=== PATIENT | female | born 1940 | race Caucasian/White ===

== ENCOUNTER 2018-05-28 18:02 | Inpatient (IN) | payer MEDICARE, BC ==
[~2018-05-28] VITALS: Ht 160 cm; Wt 75.7 kg
[2018-05-28 18:03] VITALS: BP 164/70
[2018-05-28 18:44] LABS: HEMATOCRIT 30.3 % (37.0-47.0); HEMOGLOBIN 9.7 gm/dL (12.0-15.0); MCH 23.4 pg (26.0-34.0); MCV 73.1 fL (80.0-100.0); MPV 8.4 fl. (7.2-11.1); NUCLEATED RBCS 0 /100WBC; PLATELET COUNT* 303 thou/uL (150-400); RBC 4.14 mil/uL (4.20-5.00); RDW-CV 19.9 % (10.5-14.5); WBC 7.7 thou/uL (4.0-11.0)
[2018-05-28 18:53] LABS: PROTIME 10.3 Seconds (9.20-11.50)
[2018-05-28 18:57] LABS: ANION GAP 13 mmol/L (7-16); BUN 18 mg/dL (7-18); CALCIUM 8.7 mg/dL (8.5-10.1); CHLORIDE 106 mmol/L (98-107); CO2 24 mmol/L (21-32); CREATININE 0.8 mg/dL (0.6-1.3); GLUCOSE 117 mg/dL (70-99); SODIUM 143 mmol/L (136-145); TROPONIN-I LEVEL <0.06 ng/mL (<0.06)
[2018-05-28 18:58] LABS: ALBUMIN 3.8 g/dL (3.4-5.0); ALKALINE PHOSPHATASE 95 U/L (46-116); NT-PRO BRAIN NAT PEPTIDE 173 pg/mL (<300); SGOT 17 U/L (15-37); SGPT 14 U/L (30-65); TOTAL BILIRUBIN 0.4 mg/dL (<0.1-1.0); TOTAL PROTEIN 6.9 g/dL (6.4-8.2)
[2018-05-28 19:09] LABS: ABSOLUTE EOSINOPHILS 0.1 thou/uL (0.0-0.7); ABSOLUTE LYMPHOCYTES 0.5 thou/uL (0.8-5.3); ABSOLUTE MONOCYTES 0.5 thou/uL (0.0-1.2); ABSOLUTE NEUTROPHILS 6.6 thou/uL (1.6-8.1)
[2018-05-28 19:10] LABS: ANISOCYTOSIS 1+; MICROCYTES 1+; PLATELET ESTIMATE ADEQUATE
[2018-05-28 21:00] LABS: URINE BILIRUBIN NEGATIVE (Negative); URINE BLOOD NEGATIVE (Negative); URINE CLARITY CLEAR; URINE COLOR YELLOW; URINE GLUCOSE-RANDOM NEGATIVE (Negative); URINE KETONES NEGATIVE (Negative); URINE LEUKOCYTES-REFLEX NEGATIVE (Negative); URINE NITRITE-REFLEX NEGATIVE (Negative); URINE PROTEIN NEGATIVE (Negative); URINE SPECIFIC GRAVITY 1.025 (1.005-1.030); URINE UROBILINOGEN 0.2 E.U./dl (0.2-1.0)
[2018-05-28 22:32] VITALS: BP 147/66
[2018-05-28 22:45] VITALS: BP 166/81
--- NOTE | 2018-05-28 23:17 | NUR ---
PATIENTS DAUGHTER REQUESTED TO HAVE CASE MANAGEMENT/SOCIALSERVICES SEE PATIENT ABOUT AFTER DISCHARGE CARE. PATIENT LIVES WITH DAUGHTER AND PATIENT NOW HAS MOBILITY DIFFICULTY. PATIENTS DAUGHTER STATES THEY WILL NEED ASSISTANCE. ED SMALL BUSINESS SALES REPRESENTATIVE NOTIFIED OF THIS REQUEST AND JAMIE BACON FLOOR NURSE WAS ALSO NOTIFIED OF THIS REQUEST ON TELEPHONE REPORT. PATIENTS DAUGHTER IS MARY JUAREZ [phone]
[2018-05-29 04:00] VITALS: BP 135/68
--- NOTE | 2018-05-29 04:18 | NUR ---
ASSUMED CARE OF PT AT 2245. PT IS ALERT AND ORIENTED. VSS. PERRLA. PT IS REPORTING SOME PAIN IN RIGHT ARM AT THIS TIME. PT TO RECIEVE FENTANYL FOR PAIN. PT IS IN SIUS RYTHM ON THE TELEMETRY. PT IS RESTING COMFORTABLY IN BED. RESPIRATIONS ARE EVEN AND NONLABORED. WILL CONTINUE TO MONITOR
[2018-05-29 05:07] LABS: HEMATOCRIT 27.7 % (37.0-47.0); HEMOGLOBIN 8.8 gm/dL (12.0-15.0); MCH 23.1 pg (26.0-34.0); MCHC 31.7 g/dL (28.0-37.0); MCV 72.8 fL (80.0-100.0); MPV 8.7 fl. (7.2-11.1); RBC 3.81 mil/uL (4.20-5.00); RDW-CV 19.2 % (10.5-14.5)
[2018-05-29 05:17] LABS: ALBUMIN 3.4 g/dL (3.4-5.0); CALCIUM 8.7 mg/dL (8.5-10.1); CREATININE 0.8 mg/dL (0.6-1.3); POTASSIUM 3.8 mmol/L (3.5-5.1); TOTAL BILIRUBIN 0.6 mg/dL (<0.1-1.0); TOTAL PROTEIN 6.1 g/dL (6.4-8.2)
[2018-05-29 07:30] VITALS: BP 159/66
--- NOTE | 2018-05-29 10:45 | EKG ---
[place] [address] ELECTROCARDIOGRAM REPORT Name: ISIDROMADDIE LOU Room: [address] ADM IN M.R.#: [id number] Admission: 05/28/18 Attend Phys: Yong Pearson Discharge: Date of : 42 Report #: [id number] THIS REPORT FOR: //name// [facility] ED Test Date: 2018-05-28 Test Time: 18:14:00 Pat Name: MADDIE FELIX Department: Room: [facility] Gender: F Mobile Marketing Specialist: Prachi RODRIGUEZ : 1940 Requested By: Amy Heart Order Number: [id number] MD: Ike Amanda Measurements Intervals Quin[place] Rate: 90 P: -6 ND: 33 QRS: 4 QRSD: 121 T: 11 QT: 351 QTc: 430 Interpretive Statements Sinus rhythm Short ND interval Minimal ST depression, anterolateral leads Artifact in lead(s) I,II,III,aVR,aVL,aVF No previous ECG available for comparison Electronically Signed On 05-29-2018 10:45:37 CDT by Ike Amanda [email or web address] <ELECTRONICALLY SIGNED> By: Ike Amanda MD, FAC 05/29/18 1045 1814 1814 Ike Amanda MD, [facility] /EPI
[2018-05-29 12:05] VITALS: BP 142/76
[2018-05-29 16:00] VITALS: BP 142/78
[2018-05-29 20:00] VITALS: BP 141/81
[2018-05-30] VITALS: BP 138/66
[2018-05-30 04:00] VITALS: BP 125/67
--- NOTE | 2018-05-30 05:41 | NUR ---
ASSUMED CARE OF PT AFTER REPORT AT 1930. PT A&OX4. FORGETFUL AT TIMES. VSS. PHYSICAL ASSESSMENT COMPLETED AND CHARTED. PT ON RA WITH 93% O2 SAT. PT TRACING SR ON TELE. PT UP WITH 1 ASSIST TO BSC. PT COMPLAINED OF BACK PAIN- PAIN MEDS GIVEN PER MAR. PT RESTED WELL ON BED. CALL LIGHT WITHIN REACH.
[2018-05-30 08:00] VITALS: BP 116/71
[2018-05-30 16:32] VITALS: BP 155/81
--- NOTE | 2018-05-30 18:19 | NUR ---
ASSUMED CARE OF PATIENT AT APPROX 1000. ALERT AND ORIENTED X 4. ASSESSMENT AND CHARTING REVIEWED BY THIS NURSE. PATIENT UP TO CHAIR TODAY WITH WALKER AND GAIT BELT. USING BEDSIDE COMMODE TODAY. FALL PRECAUTIONS IN PLACE. CALL LIGHT WITHIN REACH. HOURLY ROUNDS COMPLETED. NURSING WILL CONTINUE TO MONITOR.
[2018-05-30 20:00] VITALS: BP 157/79
--- NOTE | 2018-05-31 04:57 | NUR ---
PT REMAINED A&O X 4. VITALS, SpO2 STABLE. PAIN MEDS GIVEN ORDERED. PAIN WELL CONTROLLED BY IV PAIN MED. RT UPPER EXTREMITY IN SLING. PT USE HER UPPER EXTRIMITY TO TURN AND TOLERATED WELL. WILL CONTINUE TO MONITOR.
[2018-05-31 07:40] VITALS: BP 140/63
--- NOTE | 2018-05-31 14:41 | NUR ---
SPOKE WITH PT. SHE HAD SLURRED SPEECH BUT SHE WAS UNDERSTANDABLE. HAS SOME L SIDED WEAKNESS.BUT SHE ATTRIBUTES IT TO THE CVA SHE HAD WHEN SHE WAS 19 AND HER ALS (WHICH HAS NEVER BEEN ACTUALLY DX'D) SHE LIVES WITH HER DAUGHTER,MARY. HERMAN WORKS EVERYDAY BUT IS HOME IN THE EVENINGS. PT.HAS A 2 WALKERS. ONE UPSTAIRS AND ONE DOWN. ALSO HAS A STAIR LIFT. PT.SAID SHE WAS FULLY ABLE TO DO EVERYTHING FOR HERSELF PRIOR TO HER FALL. SHE IS AGREEABLE TO HAVING AN MRI. SHE IS AGREEABLE TO SNF. SHE IS NOT SURE WHERE SHE WOULD WANT TO GO. CM SPOKE WITH MARY ON CELL. INFORMED HER ABOUT REHAB EVAL. SHE SAID PT.REALLY HAD NO ONE TO HELP HER,IF NEEDED,AFTER A STAY IN REHAB. SHE WORKS [employer] AND NOT SURE SHE COULD TAKE OFF WORK ANY AMOUNT OF TIME. DISCUSSED SNF. SHE WILL TALK WITH HER MOM AGUSTO. WILL LEAVE SNF INFORMATION AND LEAVE A DPOA/AD FORM. CM WILL FOLLOW.
[2018-05-31 16:38] VITALS: BP 160/86
--- NOTE | 2018-05-31 17:08 | NUR ---
ASSUMED CARE OF PATIENT AT APPROX 0730. ALERT AND OREINTED X4. ASSESSMENT COMPLETED AND CHARTED. VSS ON ROOM AIR. NO COMPLAINTS OF NAUSEA, OR SOA. COMPLAINTS OF BACK PAIN MANAGED WITH IV AND ORAL MEDICATIONS. PATIENT WORKED WITH PT TODAY AND PROGRESSED TOWARD GOALS. SEEN BY NEURO AND DPEECH THERAPY TODAY. FALL PRECAUTIONS IN PLACE. CALL LIGHT WITHIN REACH. HOURLY ROUNDS COMPLETED. NURSING WILL CONTINUE TO MONITOR.
[2018-05-31 19:50] VITALS: BP 153/92
--- NOTE | 2018-06-01 04:36 | NUR ---
PT REMAINED A&O X 4. VITALS, Sp02 STABLE. PAIN WELL MANAGED WITH TRAMADOL. PT SLEEPING ON HOURLY ROUNDINGS THROUGH THE NIGHT. WILL CONTINUE TO MONITOR
[2018-06-01 07:29] VITALS: BP 153/73
[2018-06-01] MEDS ORDERED: TRAMADOL 50 MG50 MG PO (09:55)
[2018-06-01 09:59] VITALS: BP 153/73
[2018-06-01] MEDS ORDERED: TYLENOL325 MG PO (10:44)
[2018-06-01] MEDS ORDERED: PRENATAL PO (10:45)
[2018-06-01] MEDS ORDERED: VITAMIN B-1100 M1 PO (10:46)
[2018-06-01] MEDS ORDERED: FOLIC ACID1 MG PO (10:46)
--- NOTE | 2018-06-01 11:00 | NUR ---
REHAB DENIED PT.DUE TO NOT HAVING 24 HR CARE AT HOME IF NEEDED WHEN DISCHARGED FROM REHAB. CALLED DAUGHTER,MARY, ON CELL AND EXPLAINED. TOLD HER PT.HAD DISCHARGE ORDERS. ASKED WHICH SNF SHE WOULD LIKE A REFERRAL MADE TO SHE WAS GOING TO DISCUSS WITH HER MOM LAST NIGHT. MARY GOT ANGRY, SAID NO DRRodneyHAD EVER CALLED HER, THAT THE ONLY PERSON THAT CALLED HER WAS BRANDYN. 'WORST COMMUNICATION PRAMOD EVER SEEN. SHE SAID SHE GUESSED SHE WOULD HAVE HER GO TO [facility]. BRANDYN NOTIFIED KAYLYNN/PT.REP TO CALL DAUGHTER TO DISCUSS SITUATION. REFERRAL FAXED TO [facility].
--- NOTE | 2018-06-01 14:00 | NUR ---
SPOKE WITH DAUGHTER AGAIN ON PHONE TO SEE IF SHE WAS AGREEABLE TO CM MAKING A REFERRAL TO ANOTHER INPT.REHAB FACILITY. SHE SAID SHE WOULD LIKE THAT VERY MUCH. SHE CHOSE [facility]. BRANDYN SPOKE WITH [facility] AND FAXED HER REFERRAL. [facility] CALLED AND SAID THEY CAN ACCEPT PT. EXPLAINED ABOVE. SHE SAID TO JUST CALL HER TO LET HER KNOW.
[2018-06-01 16:00] VITALS: BP 125/79
--- NOTE | 2018-06-01 16:56 | NUR ---
LEFT MESSAGE ON [facility] TO SEE IF A DETERMINATION HAD BEEN MADE ABOUT ACCEPTING PT. NO CALL BACK YET. NOTIFIED MARY,DAUGHTER,THAT WE WOULD NOT DISCHARGE MOTHER UNTIL TOMORROW SO WE CAN SEE IF [facility] WILL ACCEPT. SHE SAID SHE WAS COMING IN AFTER WORK TO EXPLAIN ALL TO HER MOM.
--- NOTE | 2018-06-01 17:59 | NUR ---
ASSUMED CARE OF PT AROUND 0730 THIS AM. REFER TO ASSESSMENT. PT HAS DC ORDERS. ACCEPTED TO [facility]. REPORT GIVEN TO DOG OR ANIMAL SITTER AT THIS TIME. NO OTHER CONCERNS AT THIS TIME.CLWR. WCTM.
--- NOTE | 2018-06-02 18:03 | CON ---
[address] [address] CONSULTATION Name: MADDIE FELIX Room: [address] IN M.R.#: [id number] Admission: 05/28/18 Attend Phys: Yong Pearson Discharge: 06/01/18 Date of : 42 Report #: [id number] THIS REPORT FOR: //name// CC: [facility] physician/PCP Gadiel Crowder DATE OF SERVICE: 05/29/2018 HISTORY OF PRESENT ILLNESS: This is a 78-year-old female patient who was evaluated by me for an etiology of the patient's falls. The patient has a complicated history. She had a stroke at the age of 19. It was in association with . She thinks she was weaker on the left side. She believes she has ALS. This is because multiple members in the family have suffered from ALS. She started having speech difficulty about a year ago and since then she has pretty significant weakness in the arms and some weakness in the legs. I am not sure about her sensation. She has declined further testing. REVIEW OF SYSTEMS: A 14-point review of system was carried out and is positive for osteoporosis, history of a stroke, multiple members of the family had ALS. She had fractures in the past. She denies any new eye, ENT, cardiac, respiratory, GI, , constitutional, dermatological, hematological, psychiatric, throat, allergic symptom associated with present symptom. Pathology, looks like she did have some hematoma and other musculoskeletal injuries. PAST MEDICAL HISTORY: Positive for stroke. FAMILY HISTORY: Strongly positive for ALS. SOCIAL HISTORY: She does not use any alcohol. PHYSICAL EXAMINATION: The patient's neurological examination is difficult because her speech is affected, but she is alert. She is responsive. She is oriented. She can follow simple commands. Her speech is markedly slurred. Cranial nerve examination 2-12 was attempted. She could not cooperate very well, but it appeared to be mostly unremarkable. She has pretty significant weakness and atrophy in the arms and hands. In the lower extremities, she is weak, but is not that much atrophic. I believe her position sense is intact. She has pretty well preserved reflexes and if anything, it is hyperreflexia. Her tone looks unremarkable. It is difficult to tell about cerebellar sign. I could not look at the fundus. She has no thyroid mass. She is moderately obese individual who does not have any dysmorphic features of eyes, ears and face. Her vision and hearing looks adequate. She does not appear to have any respiratory difficulty or rhonchi. CARDIAC: Unremarkable. VITAL SIGNS: Blood pressure is 159/66, respiration is 16, pulse is 75, [place] [address] CONSULTATION Name: MADDIE FELIX Room: [address] IN M.R.#: [id number] Admission: 05/28/18 Attend Phys: Yong Pearson Discharge: 06/01/18 Date of : 42 Report #: [id number] temperature is 98.7. She is anemic with hemoglobin of 8.8, her GFR is normal. She had a CT scan of the head done, which appear unremarkable except for soft tissue swelling. IMPRESSION: I discussed with the patient that it is possible she has amyotrophic lateral sclerosis. I strongly recommended further workup to confirm the diagnosis as well as to exclude others. We need to start the workup with the C-spine, MRI to make sure there is no pathology and then she will need EMG. She is pretty adamant that she does not want workup because she believes this is amyotrophic lateral sclerosis and she does not want any further workup. RECOMMENDATIONS: I added a few additional blood workup in this patient and I will discuss with you and if she does not want any further workup then I suspect it will be a slow decline, which she is already facing. Thank you very much for this referral and if you have any question, please feel free to contact me. <ELECTRONICALLY SIGNED> By: Don Newman MD 06/02/18 1803 0914 [id number] Newman MD /nt
== END 2018-06-01 18:15 | DRG 542 ==
LOC: M.ERS 18:02 → M.TBA-ER 21:40 → M.2W 21:40 → M.ORTHSURG 21:40 → M.2W 21:55 → M.ORTHSURG 05-30 11:07
PROVIDERS: Emergency Medicine; Nurse Practitioner Family; ADMIT Internal Medicine
DX: M80.011A Age-related osteoporosis with current pathological fracture, right shoulder, initial encounter for fracture (principal); G93.41 Metabolic encephalopathy; R47.81 Slurred speech; M19.90 Unspecified osteoarthritis, unspecified site; W18.39XA Other fall on same level, initial encounter; Y93.89 Activity, other specified; Y92.89 Other specified places as the place of occurrence of the external cause; Y99.8 Other external cause status; Z87.81 Personal history of (healed) traumatic fracture; Z87.891 Personal history of nicotine dependence; Z86.73 Personal history of transient ischemic attack (TIA), and cerebral infarction without residual deficits; Z82.0 Family history of epilepsy and other diseases of the nervous system; Z83.3 Family history of diabetes mellitus; Z82.49 Family history of ischemic heart disease and other diseases of the circulatory system

== ENCOUNTER 2018-06-01 17:59 | Inpatient (IN) | payer MEDICARE, BC ==
[~2018-06-01] VITALS: Ht 160 cm; Wt 76.3 kg
[~2018-06-01 17:59] MED LIST: FOLIC ACID1 MG PO; PRENATAL PO; TRAMADOL 50 MG50 MG PO; TYLENOL325 MG PO; VITAMIN B-1100 M1 PO
[2018-06-01 18:49] VITALS: BP 114/65
--- NOTE | 2018-06-02 03:11 | NUR ---
CAME FROM [facility] TO REHAB @ 1821.ASSUMED CARE @ 1934-06/01-THURSDAY.AWAKE IN BED W/ HOB UP.WATCHING TV WHILE VISITING W/ FAMILY.SLING IN PLACE RUE.BED ALARM PUT ON @ 1934.BECOMES ANGRY & AGITATED EASILY W/ MOOD SWINGS.ASSIST OF 2 TO USE BSC @ 2114.WBAT RUE.IND W/ HYGIENE AFTER VOIDING.WEARS SHORT NIGHT GOWN. 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
[2018-06-02 04:11] LABS: HEMATOCRIT 30.4 % (37.0-47.0); HEMOGLOBIN 9.4 gm/dL (12.0-15.0); MCH 22.6 pg (26.0-34.0); MCHC 30.8 g/dL (28.0-37.0); MCV 73.2 fL (80.0-100.0); MPV 8.5 fl. (7.2-11.1); RBC 4.15 mil/uL (4.20-5.00); RDW-CV 19.6 % (10.5-14.5); WBC 5.8 thou/uL (4.0-11.0)
[2018-06-02 04:29] LABS: CALCIUM 8.9 mg/dL (8.5-10.1); CREATININE 0.8 mg/dL (0.6-1.3); POTASSIUM 3.7 mmol/L (3.5-5.1)
--- NOTE | 2018-06-02 05:16 | NUR ---
SLEEPING SINCE 2239 & SLEPT GOOD ALL NIGHT.SEE PAIN MANAGEMENT @ 0043.USED BSC X2.REFUSED HS SNACK.
[2018-06-02 08:30] VITALS: BP 150/98
--- NOTE | 2018-06-02 12:45 | NUR ---
Nutrition: Pt admitted to Rehab unit with ALS. She stated her usual wt was 190#, has been losing wt for a couple of months - currently ~165#. She stated she just has a decreased appetite. She did say she was eating well today. She wants toast for all BKFSTS and 2 slices of quintero - RD will order. She was not given a menu - RD provided one with instructions for ordering meals. RX, Hx, labs noted. She stated she was very tired from therapies. She is not worried about her wt at this time. Low risk.
--- NOTE | 2018-06-02 13:43 | NUR ---
ALERT AND ORIENTED X 4 WITH SHORT TERM MEMORY. ASSIST OF ONE WITH WALKER AND GAIT BELT. CONT. TO ASK FOR PAIN MEDS. COMPLAINTS OF RT SHOULD PAIN. URINATED X 2 THIS AM. ASKED TO BLADDER SCAN. CONT. WITH PLAN OF CARE AT THIS TIME.
--- NOTE | 2018-06-02 15:40 | NUR ---
SW met with pt to complete initial assessment, introduce self, SW role on inpt rehab unit and to review team conference summary and plan for pt to remain on inpt rehab unit at least another week with plan for team to reassess pt length of stay during team conference next Friday 06/09. Pt alert, oriented, talkative. Pt lives at home with her dtr; pt dtr works during the day but pt says she does not venture out much. Pt said her grandson lives in the home too. Pt has a dog that she lets in and out of the house. Pt has 2 walkers and a chair/stair lift, and a bedside commode. Pt called pt dtr Roxanne to introduce self and review team conference summary but Roxanne did not answer so SW left a detailed message and encouraged a call back with any questions or concerns. SW to continue to follow to assist with safe dc planning.
--- NOTE | 2018-06-02 18:26 | NUR ---
PATIENT UP IN WHEELCHAIR FOR MEALS. DTR HERE. PATIENT BLADDER SCANNED WITH NO RESIDUAL. COMMUNICATED TO DOCTOR.
--- NOTE | 2018-06-02 20:00 | NUR ---
RESTING QUIETLY IN BED. DENIES DISCOMFORT. SNACK PROVIDED. SPEECH SLURRED BUT ABLE TO MAKE NEEDS KNOWN.
--- NOTE | 2018-06-03 05:01 | NUR ---
RESTED QUIETLY. NO COMPLAINTS VOICED. HOURLY ROUNDING IN PROGRESS.
[2018-06-03 07:20] VITALS: BP 137/77
[2018-06-03 14:39] LABS: % SATURATION 9 % (20-39); IRON 22 ug/dL (50-175)
--- NOTE | 2018-06-03 16:55 | NUR ---
PATIENT UP IN WHEELCHAIR FOR MEALS. DOES AMBULATE WITH ROLLING WALKER. GAIT SLOW AND SLIGHTLY UNSTEADY. SBA TO CONTACT GUARD. DENIES COMPLAINTS. CONT. TO ASK FOR TRAMADOL ON A REGULAR BASIS. CONT. WITH PLAN OF CARE AT THIS TIME.
[2018-06-03 20:12] VITALS: BP 142/80
--- NOTE | 2018-06-04 05:19 | NUR ---
ASSUMED CARES AT 1920. ALERT AND ORIENTED. PLEASANT. HX OF ALS, SLURRED SPEECH BUT ABLE TO MAKE NEEDS KNOWN. C/O RIGHT CLAVICLE PAIN. SAYS IT HURTS MORE AT NIGHT. TRAMADOL GIVEN THROUGHOUT THE NIGHT. TOOK PILLS WHOLE WITHOUT ISSUES. MIN ASSIST WITH GAIT BELT AND WALKER. UP TO BSC. SLEPT MOST OF THE NIGHT. CALL LIGHT IN REACH AND BED ALARM ON.
[2018-06-04 08:35] VITALS: BP 133/88
--- NOTE | 2018-06-04 16:38 | NUR ---
WHEN BREAKFAST CAME THE PT CALLED OUT LOOKING FOR HER BOTTOM DENTURES, THEY WERE LOCATED IN A WHITE PLASTIC CONTAINER WRAPPED IN A PAPER NAPKIN, THIS RN PROCEEDED TO TELL THE PT THAT THEY SHOULDNT BE WRAPPED IN A PAPER NAPKIN THEY LOOKED LIKE THEY COULD BE TRASH. THE PATIENT WRAPPED HER LOWER DENTURES IN A PAPER NAPKIN AFTER BREAKFAST AND PLACED THEM BACK IN THE WHITE PLASTIC CONTAINER. THEN UPON LUNCHTIME THE PATIENT HAD HER BOTTOM DENTURES AND ATE IN HER ROOM SHE REFUSED TO GO TO THE DINING ROOM FOR LUNCH. ABOUT 10-15 MINUTES AFTER TRAYS WERE PICKED UP THE PATIENT CALLED OUT AND INFORMED THIS RN THAT SHE COULD NO LONGER FIND HER BOTTOM DENTURES AND STATED THAT SHE WRAPPED THEM IN HER NAPKIN AND THOUGHT SHE PUT THEM IN HER PLASTIC CONTAINER, WHICH WAS WITHIN PATIENT REACH, (THEY WERE NOT THERE) BUT SHE THEN STATED IT WAS POSSIBLE THAT SHE LEFT THEM ON HER TRAY. THIS RN CALLED DIETARY AND THEY WERE NOTIFIED THAT THE PT MAY HAVE LEFT HER DENTURES ON HER TRAY AND THEY STATED THAT THEY WOULD LOOK FOR THEM. DIETARY DID NOT CALL BACK AND THIS RN REACHED OUT TO THEM AGAIN AROUND 1400 TO SEE IF THEY HAD FOUND THE DENTURES AND THEY STATED THEY WOULD CALL SOMEONE AT HOME AND LET US KNOW IF THEY FOUND THE DENTURES. AT THIS TIME SECURITY AND THE ALCOHOL STILL OPERATOR WAS NOTIFIED REGARDING THE ISSUE AND THE SECURITY NOTIFIED THE PATIENT THAT MULTIPLE INDIVIDUALS WERE LOOKING FOR HER DENTURES AT THIS TIME.
[2018-06-04 20:30] VITALS: BP 125/74
--- NOTE | 2018-06-04 22:05 | NUR ---
INITAL ASSESMENT COMPLETED AT 2029. PT RESTING IN BED AT THAT TIME. DENIED PAIN OR DISCOMFORT. CALL LIGHT IN REACH. PT USING PROPERLY.
[2018-06-05 07:30] VITALS: BP 142/73
--- NOTE | 2018-06-05 18:01 | NUR ---
PATIENT UP IN WHEELCHAIR. LIMITED ASSIST WITH TRANSFERS TO/FROM THE TOILET. PATIENT HAS BEEN ASKING FOR PRN PAIN MEDS FOR RT SHOULDER PAIN. GIVEN ORDERED. NO SIGN OF DISTRESS, DENIES PAIN OR DISCOMFORT.
--- NOTE | 2018-06-05 18:22 | NUR ---
PATIENT HAS BEEN REFUSING TO GO TO MAIN DINNING AREA. CONT. TO PROVIDE MUCH ENCOURAGEMENT.
[2018-06-05 19:30] VITALS: BP 154/60
[2018-06-06 04:00] LABS: HEMATOCRIT 27.7 % (37.0-47.0); HEMOGLOBIN 8.8 gm/dL (12.0-15.0); MCH 23.4 pg (26.0-34.0); MCHC 31.6 g/dL (28.0-37.0); MPV 8.1 fl. (7.2-11.1); RBC 3.74 mil/uL (4.20-5.00); RDW-CV 20.9 % (10.5-14.5); WBC 4.6 thou/uL (4.0-11.0)
[2018-06-06 04:22] LABS: CALCIUM 9.1 mg/dL (8.5-10.1); CREATININE 0.7 mg/dL (0.6-1.3); MAGNESIUM 2.2 mg/dL (1.8-2.4); POTASSIUM 3.6 mmol/L (3.5-5.1)
--- NOTE | 2018-06-06 05:22 | NUR ---
INITAL ASSESSMENT COMPLETED AT 1930. PT FRUSTRATED AND ANGRY AT START OF SHIFT. PT REPORTS LOOSING BOTTOM DENTURE AND NO ONE HAS FOUND YET. PT GIVEN PRN ULTRAM AT 2014 AND 414 FOR PAIN IN FRACTURED CLAVICLE. PT VERY FRUSTRATED THIS AM AT 0400 AND ASKED TO SPEAK WITH NURSING PASSENGER RATE CLERK. VITAL SIGNS WITHIN NORMAL LIMITS. PT RESTING IN BED AT THIS TIME. CALL LIGHT IN REACH. PT USING APPROPRIATELY.
[2018-06-06 08:16] VITALS: BP 145/81
--- NOTE | 2018-06-06 15:15 | NUR ---
PATIENT UP IN WHEELCHAIR FOR MEALS. REQUEST TO GO TO BED. PATIENT EATING SOFT DIET DUE TO DENTURES BEING LOSS. DENIES PAIN OR DISCOMFORT. UP WITH SBA ASSIST TO CONTACT GUARD. CONT. WITH CURRNENT PLAN OF CARE A THIS TIME.
--- NOTE | 2018-06-06 19:40 | NUR ---
PAIN MEDICATION GIVEN FOR COMPLAINT OF RIGHT SHOULDER PAIN. SPEECH SLURRED BUT ABLE TO MAKE NEEDS KNOWN. FUSSY AND PARTICULAR AT TIMES BUT MOSTLY PLEASANT.
[2018-06-06 20:00] VITALS: BP 147/77
--- NOTE | 2018-06-07 04:55 | NUR ---
UP TO BEDSIDE COMMODE TO VOID X 2 DURING THE NIGHT. ULTRAM GIVEN FOR COMPLAINT OF RIGHT CLAVICLE PAIN WITH RELIEF. HOURLY ROUNDING IN PROGRESS.
[2018-06-07 08:08] VITALS: BP 164/78
--- NOTE | 2018-06-07 12:47 | NUR ---
Nutrition: Consult received for lost dentures. Pt stated she lost the bottom dentures about a week ago. She has a ground diet and is able to eat it well. She stated "nothing looks good right now." Lunch tray was untouched during our visit. She also requested 2 bacons and 1 toast with every BKFST - RD will orde.r Continue at low risk.
--- NOTE | 2018-06-07 16:54 | NUR ---
pt has been up to chair at bedside today and has participated with therapies. pt calls for assist to bathroom and ambulates with gaitbelt,walker and min assist of 1. prn for bank ach given this afternoon with good effect. pt declines to eat meals in dinningroom.pt is continent of b+b.pt remains alert and orientated. hourly rounding continues.
--- NOTE | 2018-06-07 19:08 | NUR ---
DR WATKINS HAS SEEN PT AND CALLED TO SEE. RT.LOWER LEG. BRUSED AREA WITH INCREASED EDEMA AND WARMTH. DR. HOWE REQUESTS TO MONITOR AREA. AREA MARKED WITH SHARPIE TO MONITOR SIZE. PICTURE TAKEN AND PLACED ON CHART.DAUGHTER HERE.
[2018-06-07 20:00] VITALS: BP 139/75
--- NOTE | 2018-06-08 05:22 | NUR ---
ASSUMED CARES AT 1920. ALERT AND ORIENTED. PLEASANT. SLURRED SPEECH. TRAMADOL GIVEN FOR RIGHT CLAVICLE PAIN. MIN ASSIST WITH GAIT BELT AND WALKER. UP TO BSC. DOES OWN CARES. SLEPT OFF AND ON. CALL LIGHT IN REACH AND BED ALARM ON.
[2018-06-08 07:33] VITALS: BP 150/73
--- NOTE | 2018-06-08 15:21 | NUR ---
SW spoke with pt desmond Oliveira on the 4th and pt completed DPOA naming Roxanne as agent and a son as alternate agent. SW tried to call Roxanne today in preparation for team conference tomorrow, no answer and so SW left a message requesting return call if any questions and/or to follow up. SW to continue to follow to assist with safe dc planning.
--- NOTE | 2018-06-08 17:11 | NUR ---
PT HAS PARTICIPATED WITH THERAPIES AND CALLS FOR ASSIST NEEDS. PT AMBULATES WITH WALKER,GAITBELT AND MIN ASSIST OF 1. PT REMAINS CONTINENT OF BLADDER. PT REMAINS ALERT AND ORIENTATED AND HOURLY ROUNDING CONTINUES.
[2018-06-08 20:00] VITALS: BP 108/65
--- NOTE | 2018-06-09 06:25 | NUR ---
ASSUMED CARES AT 1920. ALERT AND ORIENTED PLEASANT. DECLINED ANY NEED FOR PAIN MEDS. TOOK PILLS WHOLE WITHOUT ISSUES. PT PASSING GAS AND TRYING TO HAVE BM. MIN ASSIST WITH GAIT BELT AND WALKER. UP TO BR DURING THE NIGHT. UNSTEADY GAIT. DOES OWN CARES. REDNESS TO AREA ON RLE HAS NOT INCREASED IN SIZE. CONTINUING TO MONITOR. PT SLEPT MOST OF THE NIGHT. CALL LIGHT IN REACH AND BED ALARM ON.
[2018-06-09 07:36] VITALS: BP 95/74
--- NOTE | 2018-06-09 13:27 | NUR ---
SW met with pt to review team conference summary and plan for pt to remain on rehab unit to continue therapies at least one more week with plan for team to reassess pt length of stay during team conference on next Friday 06/16. Pt in agreement with plan. ROSARIO called pt dtr Roxanne to review team conference summary but Roxanne did not answer so ROSARIO left a message requesting call back with any questions or concerns. Plan continues to be pt to dc home with dtr (who works during the day) and grandson; pt goal to be more independent; pt is mod to min assist with mobility tasks and max to standby assist with ADLs, pt is min assist to supervision with cognitive tasks. SW to continue to follow to assist with safe dc planning.
[2018-06-09 20:00] VITALS: BP 151/81
--- NOTE | 2018-06-10 05:13 | NUR ---
ASSUMED CARES AT 1920. ALERT AND ORIENTED PLEASANT. DENIED ANY NEED FOR PAIN MEDS. TOOK PILLS WHOLE. MIN ASSIST WITH GAIT BELT AND WALKER. UNSTEADY GAIT. UP TO THE BATHTROOM X 2 DURING THE NIGHT. DOES OWN CARES. WEARING PULLUPS. SLEPT WELL MOST OF THE NIGHT. CALL LIGHT IN REACH AND BED ALARM ON.
[2018-06-10 08:00] VITALS: BP 120/82
--- NOTE | 2018-06-10 14:32 | NUR ---
PT CARE ASSUMED THIS AM, ASSESSMENT AND VITAL SIGNS COMPLETED DOCUMENTED. PT HAS BEEN PLEASANT AND COOPERATIVE WITH THERAPIES AND NURSING. TRAMADOL GIVEN FOR C/O RIGHT SHOULDER AND RIGHT LOWER LEG PAIN. PT IS ABLE TO FEED HERSELF BUT DOES BETTER WITH FINGER FOODS. PT AMBULATES WITH A FFW AND MIN ASSIST. FALL PRECAUTIONS AND HOURLY ROUNDING CONTINUE.
[2018-06-10 20:00] VITALS: BP 117/60
--- NOTE | 2018-06-11 00:53 | NUR ---
ASSUMED CARE AT 1930. PATIENT RESTING IN BED. TURNS SELF. NEEDS HELP MOVING UP IN BED. TAKES PILLS WHOLE WITH WATER. DECLINED NEED TO VOID AT HS. BRUISED AREA HAS SCABBED AREAS NOTED, AND BRUISING DOES NOT EXCEED PREVIOUSLY MARKED PARAMETERS. NO C/O PAIN. HOURLY ROUNDS CONTINUE. BED ALARM ON. CALL LITE IN REACH.
--- NOTE | 2018-06-11 05:42 | NUR ---
SLEPT ALL NIGHT UNTIL 0500 AND AWOKE TO VOID. UP WITH STEADYING ASSIST, GAIT BELT, WALKER. DOES OWN CARES. NO C/O PAIN. TURNS SELF. ABLE TO GET HIGHER IN BED WITH BED FLAT AND WHILE IN SITTING POSITION SCOOTS UP IN BED. HOURLY ROUNDS CONTINUE. BED ALARM ON. CALL LITE IN REACH.
[2018-06-11 08:00] VITALS: BP 137/61
--- NOTE | 2018-06-11 19:12 | NUR ---
ASSUMMED CARE OF PT AT 0730, PT ALERT AND ORIENTED, FORGETFUL, TRANSFERS WITH SBA, GB WALKER, TAKING FOOD AND FLUIDS WELL, REFUSES TO EAT MEALS IN DININGROOM, COMPLAINED OF BACK PAIN AND MEDICATED PER ORDER, WOUND CARE DONE TO BILATERAL LITTLE TOES, RED/SCABBED AREA ON RIGHT CALF TENDER, PHYSICIAN ASSESSED AREA, UP IN CHAIR MUCH OF SHIFT, AMBULATES TO BATHROOM TO VOID, PARTICIPATED IN ALL THERAPIES, HOURLY ROUNDING COMPLTED, ASSESSMENT COMPLETE, WILL CONTINUE TO MONITOR.
[2018-06-11 20:15] VITALS: BP 142/60
--- NOTE | 2018-06-12 02:48 | NUR ---
ASSUMED CARE @ 1916-06/11-THURSDAY.SITS IN RECLINER WATCHING TV W/ CHAIR ALARM ALREADY ON @ 1916.PATIENT PUTS ON NIGHT GOWN BY SELF & ASSISTED W/ DONNING ON RUE.BAND AIDS ON 5TH TOES INTACT.WANTS TO GO TO BED & ASSISTED @ 1924.HOB UP.REFUSED HEELS OFF BED.BED ALARM PUT ON @ 1924.STAYS ON BACK ALL NIGHT. ON HOURLY ROUNDS.
--- NOTE | 2018-06-12 05:11 | NUR ---
SLEEPING SINCE 2100 & SLEPT GOOD ALL NIGHT.AWAKE ONCE @ 0140 FOR BRP W/ SBA X1.TOOK ALL ONE PACKAGE FAISAL CRACKERS W/ APPLE JUICE HS SNACKS.TURNED TO LEFT SIDE IND @ 0400.
[2018-06-12 07:54] VITALS: BP 128/69
--- NOTE | 2018-06-12 18:08 | NUR ---
AM ASSESSMENT AND VITAL SIGNS COMPLETED DOCUMENTED. PT CONTINUES TO WORK WITH THERAPIES AND CONTINUES TO MAKE PROGRESS. PT DOES WELL FEEDING HERSELF FINGER FOODS BUT REFUSES TO EAT IN THE DINING ROOM BECAUSE IT'S EMBARASSING. PT IS ABLE TO TAKE HER PILLS WHOLE WITHOUT DIFFICULTY. FALL PRECAUTIONS AND HOURLY ROUNDING IN PLACE.
[2018-06-12 20:11] VITALS: BP 125/82
--- NOTE | 2018-06-13 05:07 | NUR ---
ASSUMED PT CARE AT 1930. PT ALERT AND ORIENTED X4, POLITE AND COOPERATIVE WITH CARES. PT SITTING UP IN RECLINER AT SHIFT CHANGE. TRANSFERRED TO BED WITH MIN ASSIST, GAIT BELT AND WALKER. BRUISED AREA ON RIGHT CALF, SCABBED AREAS NOTED. BRUISING DOES NOT EXCEED PREVIOUSLY MARKED PARAMETERS. DENIES PAIN. PT UP TO BATHROOM TO VOID, DOES OWN PERICARE AND CLOTHING ADJUSTMENTS. PT CAN TURN SELF IN BED. CALL LIGHT AND FREQUENTLY USED ITEMS WITHIN REACH. USES CALL LIGHT APPROPRIATELY. HOURLY ROUNDING IN PROGRESS, WILL CONTINUE TO MONITOR.
[2018-06-13 07:35] VITALS: BP 154/73
--- NOTE | 2018-06-13 18:17 | NUR ---
PT HAS CONTINUED TO WORK TOWARD DISCHARGE GOALS, AMBULATES TO AND FROM THE DINING ROOM FOR MEALS AND TO THE GYM AND BACK. PT TAKES HER PILLS WHOLE WITHOUT DIFFICULTY, IS UP WITH STAND BY ASSIST AND HAS BEEN CONTINENT OF BOWEL AND BLADDER TODAY. FALL PRECAUTIONS AND HOURLY ROUNDING CONTINUE.
[2018-06-13 19:51] VITALS: BP 131/68
--- NOTE | 2018-06-14 02:26 | NUR ---
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
--- NOTE | 2018-06-14 05:20 | NUR ---
SLEPT EARLY @ 2044.SLEEPING GOOD ALL NIGHT.AWAKE ONCE @ 0200 FOR BRP W/ SBA #2.TURNS SELF TO LEFT SIDE @ 0400.TOOK TWO PACKAGES [employer] HS SNACKS.
[2018-06-14 08:03] VITALS: BP 119/78
--- NOTE | 2018-06-14 17:04 | NUR ---
ASSUMMED CARE OF PT AT 0730, PT ALERT AND ORIENTED, PT TRANSFERS WITH MIN ASSIST, GB WALKER, AMBULATES INTO BATHROOM TO VOID, UP IN CHAIR MOST OF SHIFT, DENIES PAIN, TAKING FOOD AND FLUIDS WELL, REFUSES TO EAT IN DININGROOM FEELS SHE IS TOO MESSY, PARTICIPATED IN ALL THERAPIES, HOURLY ROUNDING COMPLETED, ASSESSMENT COMPLETE, WILL CONTINUE TO MONITOR.
[2018-06-14 20:00] VITALS: BP 124/74
--- NOTE | 2018-06-15 00:58 | NUR ---
ASSUMED CARE AT 1930. PATIENT UP IN RECLINER UNTIL AROUND 1999. VOIDED PER TOILET. UP WITH STEADYING ASSIST, GAIT BELT, WALKER. HAS TREMORS IN BILAT HANDS, WITH FINGER CONTRACTURES. TAKES PILLS WHOLE WITH WATER. TURNS SELF, PREFERS TO HAVE HOB ELEVATED DESPITE EDUCATION. NO C/O PAIN. HOURLY ROUNDS CONTINUE. BED ALARM ON. CALL LITE IN REACH.
--- NOTE | 2018-06-15 05:56 | NUR ---
SLEPT ALL NIGHT LONG. NO C/O PAIN. HOURLY ROUNDS CONTINUE. BED ALARM ON. CALL LITE IN REACH.
[2018-06-15 08:00] VITALS: BP 132/72
--- NOTE | 2018-06-15 15:48 | NUR ---
WOUND CARE NOTE: CONSULT RECEIVED FOR RIGHT LEG WOUND. PATIENT IS S/P FALL. ECCHYMOSIS NOTED TO THE RIGHT LATERAL CALF AREA, AREA IS EDEMATOUS AND PAINFUL TO TOUCH. FLAT, RESOLVING, BLISTERS NOTED OVER ECCHYMOSIS. CLEANSED ULCERATIONS WITH WOUND CLEANSER, MECHANICALLY DEROOFED BLISTERS. RED, MOIST, PARTIAL THICKNESS WOUND BED REVEALED MEASURING 4X2. ECCHYMOSIS STILL PRESENT TO VANESA-WOUND. APPLIED OPTIFOAM AG AND SECURED WITH A ROLL GAUZE. GOOD PEDAL PULSES NOTED. RIGHT LEG IS MORE EDEMATOUS THAN LEFT. IT IS POSSIBLE THAT THERE IS A RESOLVING HEMATOMA AT THE LESION SITE. RECOMMEND Q3 DAY DRESSING CHANGE OF OPTIFOAM AG AND SECURE WITH ROLL GAUZE. KEEP LEG ELEVATED MUCH POSSIBLE ENCOURAGE GOOD NUTRTION/HYDRATION MONITOR LEG CLOSELY FOR ANY S/S OF DETERIORATION
--- NOTE | 2018-06-15 16:50 | NUR ---
ASSUMMED CARE OF PT AT 0730, PT ALERT AND ORIENTED, TRANSFERS WITH MIN ASSIST OF 1, GB WALKER, AMBULATES TO BATHROOM TO VOID, UP IN CHAIR ALL SHIFT, TAKING FOOD AND FLUIDS WELL, DENIES PAIN, WOUND CARE NURSE ASSESSED WD ON PTS RIGHT CALF, DRESSING CHANGE ORDERS OBTAINED,REFUSES TO EAT IN DININGROOM DUE TO MESSINESS OF EATING, PARTICIAPTED IN ALL THERAPIES, HOURLY ROUNDING COMPLETED ASSESSMENT COMPLETE, WILL CONTINUE TO MONITOR.
[2018-06-15 21:00] VITALS: BP 142/48
--- NOTE | 2018-06-15 21:10 | NUR ---
AMBULATED TO THE BATHROOM WITH SBA, GAITBELT, WALKER. DID OWN HYGIENE AND CLOTHING ADJUSTMENTS. PAIN MED GIVEN FOR COMPLAINT OF LEFT HIP PAIN.
--- NOTE | 2018-06-16 05:35 | NUR ---
NO FURTHER COMPLAINT OF PAIN. RESTED QUIETLY. HOURLY ROUNDING IN PROGRESS.
[2018-06-16 09:41] VITALS: BP 143/81
--- NOTE | 2018-06-16 13:24 | NUR ---
SW met with pt to review team conference summary and plan for pt to dc home with family tomorrow. And HH services to follow: PT, OT, ST. Pt in agreement with plan. ROSARIO called pt dtr Roxanne and discussed dc planning for tomorrow; pt dtr prepared for dc plan for tomorrow. Pt dtr will parts picker pt by 6:00 pm. ROSARIO discussed HH services to follow and presented HH options; pt dtr to discuss with pt, pt family and provide pt preference to SW tomorrow. ROSARIO to continue to follow to assist with finalizing safe dc plan for 06/17.
--- NOTE | 2018-06-16 17:49 | NUR ---
ALERT AND ORIENTED X 4, TO BATHROOM WITH ROLLING WALKER. DENIES COMPLAINTS OF PAIN OR DISCOMFORT. NO SIGN OF DISTRESS. CONT. WITH PLAN OF CARE. PLANS FOR DISCHARGE TOMORROW.
[2018-06-16 20:00] VITALS: BP 140/79
--- NOTE | 2018-06-17 00:06 | NUR ---
ASSUMED CARE AT 1930. PATIENT RESTING IN RECLINER UNTIL 2029. UP WITH SBA, GAIT BELT, WALKER. DOES OWN HYGIENE AND CLOTHING ADJUSTMENT. TURNS SELF. HAND TREMORS NOTED AT TIMES, HANDS CONTRACTURES, BUT DOES OWN CARES. NO C/O PAIN. HOURLY ROUNDS CONTINUE. BED ALARM ON. CALL LITE IN REACH.
--- NOTE | 2018-06-17 05:00 | NUR ---
SLEPT VERY WELL THROUGH SHIFT UNTIL AROUND 0430. USED CALL LITE TO REQUEST GOING TO THE TOILET. HELPED PUT ON ONE GRIPPER SOCK WHILE NURSE DID THE OTHER, SEEMED TO KNOW WHAT GAIT BELT WAS FOR WHEN APPLIED PRIOR TO GETTING UP. DIONI AND USED WALKER TOWARDS BATHROOM. JUST AFTER WALKING EVEN WITH THE SINK, PATIENT ASKED WHERE TO GO AND KEPT TRYING TO GO TO THE LEFT EVEN WHEN THIS NURSE SAID TO GO TO THE RIGHT. WHEN ASKED IF SHE KNEW WHERE SHE WAS SHE STATED LOUDLY AND EMPHATICALLY, "I AM AT HOME!" WHEN THIS NURSE TRIED TO GENTLY REORIENT, PATIENT BECAME LOUDER AND MORE EMPHATIC THAT SHE WAS AT HOME. SHE DID HER HYGIENE AND RETURNED TO BED ADN STARTED CRYING, WANTING HER DAUGHTER. THIS NURSE EXPLAINED THAT IT WAS 0430 AND ALLOWED PATIENT TO VENT. AFTER A FEW MOMENTS PATIENT REMEMBERED SHE WAS IN THE HOSPITAL, BUT SAID THE LIGHT (ONE OVER THE SINK) WAS SO BRIGHT THAT IT CAUSED HER TO FORGET WHERE SHE WAS. ALSO, PATIENT DID NOT HAVE HER GLASSES ON WHEN SHE GOT UP. PATIENT ABLE TO RELAX AND RETURN TO BED. PATIENT STOPPED CRYING, AND SUPPORT GIVEN. RETURNED TO SLEEP. BED ALARM ON. CALL LITE IN REACH. HOURLY ROUNDS CONTINUE.
[2018-06-17 10:10] VITALS: BP 140/79
--- NOTE | 2018-06-17 15:06 | NUR ---
[employer] TECHNICIAN INFORMED OF THE NEED TO SEND A REFERRAL FOR HH TO [facility]. D/C HIGH LIFT DRIVER SPOKE TO INTAKE WITH [facility] TO INFORM OF THE HH REFERRAL AND FAXED THE PATIENTS'S FACESHEET AND H&P. CM AWAITING SIGNED D/C ORDERS. CM WILL REMAIN AVIALABLE TO ASSIST AND FOLLOW NEEDED.
[2018-06-17 15:20] VITALS: BP 140/79
--- NOTE | 2018-06-17 16:04 | NUR ---
Pt to dc home with dtr today. Pt/pt dtr provided HH preference of [facility]; dc airport planner faxed initial referral to [facility], nurse to fax orders after Dr Rodriguez completes prior to pt dc. Pt dtr expressed need for RW ordered as pt walker was not hers and is older than 5 years as well. SW called [facility] and faxed referral info and order for RW, [facility] called back and approved issuing a walker, Wood, home therapy teacher provided and forms to be signed by pt dtr upon dtr arrival as pt is unable to sign. [facility] ph [phone] fax [phone] [facility] ph [phone] fax [phone]
[2018-06-17 17:05] VITALS: BP 140/79
[2018-06-17 17:14] VITALS: BP 140/79
--- NOTE | 2018-06-17 17:45 | NUR ---
PATIENT ALERT AND ORIENTED X 4, UP IN RECLINER MOST OF THE DAY. DRSG CHANGED AFTER DR WATKINS LOOKED AT. DISCHARGE MEDICATIONS REVIEWED TO PPATIENT DAUGHTER WHEELED OUT IN WHEELCHAIR AND TRANSFERRED TO FAMILY CARE WITHOUT INCIDENT.
== END 2018-06-17 17:49 | disposition home or self-care (01) | DRG 57 ==
LOC: M.REH 17:59
PROVIDERS: Family Medicine; Internal Medicine; ADMIT Physical Medicine & Rehabilitation
DX: G12.21 Amyotrophic lateral sclerosis (principal); S42.001A Fracture of unspecified part of right clavicle, initial encounter for closed fracture; W18.39XA Other fall on same level, initial encounter; R29.6 Repeated falls; R26.9 Unspecified abnormalities of gait and mobility; D50.9 Iron deficiency anemia, unspecified; I87.2 Venous insufficiency (chronic) (peripheral); S80.11XA Contusion of right lower leg, initial encounter; Y92.098 Other place in other non-institutional residence as the place of occurrence of the external cause; Y93.89 Activity, other specified; Y99.8 Other external cause status; Z86.73 Personal history of transient ischemic attack (TIA), and cerebral infarction without residual deficits; Z87.891 Personal history of nicotine dependence